=== PATIENT | female | born 1965 | race Hispanic/Latino ===

== ENCOUNTER 2016-08-02 09:36 | Emergency (ER) | payer SELFPAY ==
[2016-08-02] MEDS ORDERED: ATIVAN ONE (10:05)
[2016-08-02] MEDS ORDERED: NACL 0.9% 1000 ML 1,000 ML ONE (10:11)
[2016-08-02] MEDS ORDERED: NACL 0.9% 1000 ML 1,000 ML IV ONE (10:15)
[2016-08-02] MEDS ORDERED: ATIVAN IV ONE (10:15)
[2016-08-02 10:22] LABS: Urine Drugs of Abuse Note Disclamer
--- NOTE | 2016-08-02 10:26 | Emergency Department Report ---
ED Seizure HPI - General Chief Complaint: Seizure Stated Complaint: SEIZURES Time Seen by Provider: 08/02/16 10:14 Source: family, EMS Mode of arrival: Stretcher Limitations: Altered Mental Status - History of Present Illness Initial Comments: 51-year-old female presents to the emergency department via EMS for evaluation of seizure activity. History is obtained from the patient's due to the patient's altered mental status. Reportedly, the patient has a history of seizures, but has not had a seizure in over 30 years. states approximately 2 weeks ago the patient began stating that she felt like she was going to have a seizure, but no seizure activity occurred. This morning, the patient came into the living room stating she felt like she was going to have a seizure. states that the patient's head then turned to her left and she began screaming. called EMS and trying to hold the patient down. EMS arrived and the patient did have an episode of tonic-clonic seizure activity per the . Since this episode the patient has become agitated and combative with EMS and nursing. denies other medical history or illicit drug use. There are no other complaints. MD Complaint: possible seizure -: Sudden, This morning Description of Episode: post-event confusion Witnessed:: Yes Trauma: No Place: home Possible Precipitating Event: none Treatments Prior to Arrival: restraints - Related Data Home Medications Medication Instructions Recorded Confirmed Last Taken No Known Home Medications [No 08/02/16 08/02/16 Unknown Reported Home Medications] Allergies Allergy/AdvReac Type Severity Reaction Status Date / Time No Known Allergies Allergy Verified 08/02/16 10:21 ED Review of Systems ROS: Stated complaint: SEIZURES Other details as noted in HPI Comment: Unobtainable due to pts medical conditions ED Past Medical Hx - Past Medical History Hx Seizures: Yes (reportedly > 30 years ago) - Surgical History Past Surgical History?: No - Family History Family history: no significant - Social History Smoking Status: Never Smoker Substance Use Type: None - Medications Home Medications: Home Medications Medication Instructions Recorded Confirmed Last Taken Type No Known Home Medications [No 08/02/16 08/02/16 Unknown History Reported Home Medications] ED Physical Exam - General Limitations: Altered Mental Status General appearance: alert, postictal - Head Head exam: Present: atraumatic, normocephalic - Eye Eye exam: Present: normal appearance, PERRL, EOMI - ENT ENT exam: Present: normal exam, normal orophraynx, mucous membranes moist - Neck Neck exam: Present: normal inspection, full ROM. Absent: tenderness - Respiratory Respiratory exam: Present: normal lung sounds bilaterally. Absent: respiratory distress - Cardiovascular Cardiovascular Exam: Present: regular rate, normal rhythm, normal heart sounds - GI/Abdominal GI/Abdominal exam: Present: soft, normal bowel sounds. Absent: distended, tenderness - Extremities Exam Extremities exam: Present: normal inspection, full ROM. Absent: tenderness - Back Exam Back exam: Present: normal inspection, full ROM. Absent: tenderness - Neurological Exam Neurological exam: Present: alert, altered. Absent: motor sensory deficit - Psychiatric Psychiatric exam: Present: agitated - Skin Skin exam: Present: warm, dry, intact ED Course Vital Signs 08/02/16 08/02/16 08/02/16 10:14 10:17 10:21 Temperature [ Post-Procedure] Temperature [ Pre-Procedure] Pulse Rate 58 L 55 L 65 Pulse Rate [ Post-Procedure] Pulse Rate [Pre -Procedure] Respiratory 22 21 16 Rate Respiratory Rate [Post- Procedure] Respiratory Rate [Pre- Procedure] Blood Pressure 98/56 86/28 Blood Pressure [Left] Blood Pressure [Post-Procedure ] Blood Pressure [Pre-Procedure] O2 Sat by Pulse 98 98 96 Oximetry O2 Sat by Pulse Oximetry [Post -Procedure] O2 Sat by Pulse Oximetry [Pre- Procedure] 08/02/16 08/02/16 08/02/16 10:31 10:41 10:51 Temperature [ 97.9 F Post-Procedure] Temperature [ 98.1 F Pre-Procedure] Pulse Rate 79 116 H Pulse Rate [ 71 Post-Procedure] Pulse Rate [Pre 81 -Procedure] Respiratory 23 31 H Rate Respiratory 12 Rate [Post- Procedure] Respiratory 14 Rate [Pre- Procedure] Blood Pressure 86/27 79/21 Blood Pressure [Left] Blood Pressure 103/47 [Post-Procedure ] Blood Pressure 89/41 [Pre-Procedure] O2 Sat by Pulse 100 98 Oximetry O2 Sat by Pulse 100 Oximetry [Post -Procedure] O2 Sat by Pulse 96 Oximetry [Pre- Procedure] 08/02/16 08/02/16 08/02/16 10:55 11:00 11:11 Temperature [ Post-Procedure] Temperature [ Pre-Procedure] Pulse Rate 65 67 81 Pulse Rate [ Post-Procedure] Pulse Rate [Pre -Procedure] Respiratory 17 17 18 Rate Respiratory Rate [Post- Procedure] Respiratory Rate [Pre- Procedure] Blood Pressure 103/47 99/62 99/62 Blood Pressure [Left] Blood Pressure [Post-Procedure ] Blood Pressure [Pre-Procedure] O2 Sat by Pulse 100 100 100 Oximetry O2 Sat by Pulse Oximetry [Post -Procedure] O2 Sat by Pulse Oximetry [Pre- Procedure] 08/02/16 08/02/16 08/02/16 11:21 11:31 11:41 Temperature [ Post-Procedure] Temperature [ Pre-Procedure] Pulse Rate 62 80 93 H Pulse Rate [ Post-Procedure] Pulse Rate [Pre -Procedure] Respiratory 18 20 18 Rate Respiratory Rate [Post- Procedure] Respiratory Rate [Pre- Procedure] Blood Pressure 99/62 97/56 97/56 Blood Pressure [Left] Blood Pressure [Post-Procedure ] Blood Pressure [Pre-Procedure] O2 Sat by Pulse 100 100 100 Oximetry O2 Sat by Pulse Oximetry [Post -Procedure] O2 Sat by Pulse Oximetry [Pre- Procedure] 08/02/16 08/02/16 08/02/16 11:51 12:00 12:11 Temperature [ Post-Procedure] Temperature [ Pre-Procedure] Pulse Rate 79 62 63 Pulse Rate [ Post-Procedure] Pulse Rate [Pre -Procedure] Respiratory 18 19 22 Rate Respiratory Rate [Post- Procedure] Respiratory Rate [Pre- Procedure] Blood Pressure 97/56 110/61 110/61 Blood Pressure [Left] Blood Pressure [Post-Procedure ] Blood Pressure [Pre-Procedure] O2 Sat by Pulse 100 100 100 Oximetry O2 Sat by Pulse Oximetry [Post -Procedure] O2 Sat by Pulse Oximetry [Pre- Procedure] 08/02/16 08/02/16 08/02/16 12:21 12:31 12:41 Temperature [ Post-Procedure] Temperature [ Pre-Procedure] Pulse Rate 96 H 82 67 Pulse Rate [ Post-Procedure] Pulse Rate [Pre -Procedure] Respiratory 22 20 25 H Rate Respiratory Rate [Post- Procedure] Respiratory Rate [Pre- Procedure] Blood Pressure 110/61 139/103 139/103 Blood Pressure [Left] Blood Pressure [Post-Procedure ] Blood Pressure [Pre-Procedure] O2 Sat by Pulse 100 95 100 Oximetry O2 Sat by Pulse Oximetry [Post -Procedure] O2 Sat by Pulse Oximetry [Pre- Procedure] 08/02/16 08/02/16 08/02/16 12:51 13:01 13:11 Temperature [ Post-Procedure] Temperature [ Pre-Procedure] Pulse Rate 67 79 74 Pulse Rate [ Post-Procedure] Pulse Rate [Pre -Procedure] Respiratory 22 28 H 19 Rate Respiratory Rate [Post- Procedure] Respiratory Rate [Pre- Procedure] Blood Pressure 139/103 121/52 139/103 Blood Pressure [Left] Blood Pressure [Post-Procedure ] Blood Pressure [Pre-Procedure] O2 Sat by Pulse 100 100 100 Oximetry O2 Sat by Pulse Oximetry [Post -Procedure] O2 Sat by Pulse Oximetry [Pre- Procedure] 08/02/16 08/02/16 08/02/16 13:21 13:30 13:41 Temperature [ Post-Procedure] Temperature [ Pre-Procedure] Pulse Rate Pulse Rate [ Post-Procedure] Pulse Rate [Pre -Procedure] Respiratory Rate Respiratory Rate [Post- Procedure] Respiratory Rate [Pre- Procedure] Blood Pressure 139/103 105/53 105/53 Blood Pressure [Left] Blood Pressure [Post-Procedure ] Blood Pressure [Pre-Procedure] O2 Sat by Pulse 99 100 99 Oximetry O2 Sat by Pulse Oximetry [Post -Procedure] O2 Sat by Pulse Oximetry [Pre- Procedure] 08/02/16 08/02/16 08/02/16 13:51 14:00 14:11 Temperature [ Post-Procedure] Temperature [ Pre-Procedure] Pulse Rate 79 Pulse Rate [ Post-Procedure] Pulse Rate [Pre -Procedure] Respiratory 22 Rate Respiratory Rate [Post- Procedure] Respiratory Rate [Pre- Procedure] Blood Pressure 105/53 99/52 93/53 Blood Pressure [Left] Blood Pressure [Post-Procedure ] Blood Pressure [Pre-Procedure] O2 Sat by Pulse 100 100 99 Oximetry O2 Sat by Pulse Oximetry [Post -Procedure] O2 Sat by Pulse Oximetry [Pre- Procedure] 08/02/16 14:32 Temperature [ Post-Procedure] Temperature [ Pre-Procedure] Pulse Rate 95 H Pulse Rate [ Post-Procedure] Pulse Rate [Pre -Procedure] Respiratory 16 Rate Respiratory Rate [Post- Procedure] Respiratory Rate [Pre- Procedure] Blood Pressure Blood Pressure 93/53 [Left] Blood Pressure [Post-Procedure ] Blood Pressure [Pre-Procedure] O2 Sat by Pulse 100 Oximetry O2 Sat by Pulse Oximetry [Post -Procedure] O2 Sat by Pulse Oximetry [Pre- Procedure] - Reevaluation(s) Reevaluation #1: 08/02/16 10:27 Patient was combative on arrival to the emergency department requiring the use of soft restraints. 4 mg of IV lorazepam were administered. Following this the patient became much calmer and began sleeping. Giving IV fluids. Obtaining labs and head CT. Will continue to monitor. Reevaluation #2: 08/02/16 11:03 In order to obtain head CT, IV ketamine was administered for sedation. Reevaluation #3: 08/02/16 15:24 Patient has had no further seizure activity in the emergency department. Lab and imaging results been reviewed and discussed with the patient and her family. Patient has been able to be out of restraints for a prolonged period of time. She is ambulatory in the department with minimal assistance. Family agrees that the patient home and will be with her until she is seen by neurologist. - Moderate Sedation Indications: diagnostic imaging proced ASA Class: I Mallampati Airway Score: 2 Preparation: lunchroom monitor applied, pulse oximeter, supplemental O2 applied Ketamine: IV Ketamine Dose: 70 Complications: none Patient Tolerated Procedure: well ED Medical Decision Making - Lab Data Result diagrams: 08/02/16 10:28 08/02/16 10:28 - Radiology Data Radiology results: image reviewed interpreted by me: CT of head shows no acute intracranial process. - Differential Diagnosis new-onset seizure, ICH, acute psychosis Critical care attestation.: If time is entered above; I have spent that time in minutes in the direct care of this critically ill patient, excluding procedure time. ED Disposition Clinical Impression: Seizure Disposition: DISCHARGED TO HOME OR SELFCARE Is pt being admited?: No Condition: Stable Instructions: New-Onset Seizure in Adults (ED) Referrals: TOM BROOKS MD [Referring] - 3-5 Days Time of Disposition: 15:26
[2016-08-02] MEDS ORDERED: KETALAR IV ONE ×2 (10:44→11:02)
[2016-08-02 10:48] LABS: Basophils % (Auto) 0.1 % (0.0-1.8); Eosinophils % (Auto) 0.7 % (0.0-4.3); Hematocrit 37.8 % (30.3-42.9); Hemoglobin 12.4 gm/dl (10.1-14.3); Mean Corpuscular HGB Conc 33 % (30-34); Mean Corpuscular Hemoglobin 30 pg (28-32); Mean Corpuscular Volume 91 fl (79-97); Platelet Count 121 K/mm3 (140-440); Red Blood Count 4.17 M/mm3 (3.65-5.03); White Blood Count 12.6 K/mm3 (4.5-11.0)
[2016-08-02 11:02] LABS: Alanine Aminotransferase 32 units/L (7-56); Albumin 3.6 g/dL (3.9-5); Albumin/Globulin Ratio 1.4 %; Alkaline Phosphatase 54 units/L (35-129); Anion Gap 18 mmol/L; BUN/Creatinine Ratio 11.25; Bilirubin,Total 0.2 mg/dL (0.1-1.2); Blood Urea Nitrogen 9 mg/dL (7-17); Calcium 7.8 mg/dL (8.4-10.2); Carbon Dioxide 22 mmol/L (22-30); Chloride 105.3 mmol/L (98-107); Glucose 147 mg/dL (65-100); Potassium 3.9 mmol/L (3.6-5.0); Sodium 141 mmol/L (137-145); Total Protein 6.2 g/dL (6.3-8.2)
--- NOTE | 2016-08-02 11:14 | Cat Scan Report ---
CT HEAD WITHOUT CONTRAST: HISTORY: Seizure. Serial contiguous axial images were obtained through the cranium. Intravenous contrast material was not administered. The ventricles are normal in size and appearance. There is no mass effect or midline shift. No areas of abnormally increased or decreased attenuation are seen. No mass lesion is seen. The mastoid air cells and visualized portions of the sinuses are normal. IMPRESSION: Cranial CT scan within normal limits.
[2016-08-02 12:24] LABS: Bilirubin,Urine NEG (Negative); Blood,Urine SM (Negative); Ketones,Urine TR mg/dL (Negative); Leukocyte Esterase,Urine NEG (Negative); Mucus,Urine FEW /HPF; Nitrite,Urine NEG (Negative); Urobilinogen,Urine < 2.0 mg/dL (<2.0); WBC,Urine < 1.0 /HPF (0.0-6.0)
[2016-08-02 15:54] VITALS: BP 101/53
== END 2016-08-02 15:53 | disposition home or self-care (01) ==
LOC: ED 09:36
DX: R56.9 Unspecified convulsions (principal)
CPT/HCPCS: 36415; 70450; 80053; 80307; 81001; 85025; 96361; 96374; 96375; 99285; G0480; J2060; J7030; 80320